=== PATIENT | male | born 1945 | race Hispanic/Latino ===

== ENCOUNTER 2018-05-25 15:58 | Emergency (ER) | payer MEDICARE, OTHER ==
[2018-05-25 16:08] VITALS: O2SAT 96
[2018-05-25 16:32] LABS: BASO # 0.1 K/uL (0.0-0.2); EOS # 0.3 K/uL (0.0-0.7); EOS % 3.3 % (0.0-4.0); HEMOGLOBIN 15.2 g/dL (12.0-18.0); LYMPH # 3.1 K/uL (1.0-4.3); LYMPH % 40.4 % (20.0-40.0); MEAN CELL VOLUME 91.9 fL (80.0-94.0); MEAN CORPUSCULAR HEMOGLOBIN 30.6 pg (27.0-31.0); MEAN CORPUSCULAR HGB CONC 33.3 g/dL (33.0-37.0); MEAN PLATELET VOLUME 6.8 fL (7.2-11.7); MONO # 0.5 K/uL (0.0-0.8); MONO % 6.1 % (0.0-10.0); NEUT # 3.8 K/uL (1.8-7.0); NEUT % 49.2 % (50.0-75.0); RBC 4.96 Mil/uL (4.40-5.90); WHITE BLOOD COUNT 7.7 K/uL (4.8-10.8)
[2018-05-25 16:40] LABS: PROTHROMBIN TIME 10.9 SECONDS (9.7-12.2)
[2018-05-25 16:42] LABS: ALB/GLOB RATIO 1.2 (1.0-2.1); ALBUMIN 4.3 g/dL (3.5-5.0); ALT/SGPT 19 U/L (21-72); AST/SGOT 21 U/L (17-59); BLOOD UREA NITROGEN 17 mg/dL (9-20); CALCIUM 8.8 mg/dl (8.6-10.4); GFR NON-AFRICAN AMERICAN > 60
[2018-05-25 16:53] LABS: CK-MB 1.36 ng/mL (0.0-3.38)
--- NOTE | 2018-05-25 17:16 | RAD ---
HISTORY: chest pain COMPARISON: No prior. TECHNIQUE: Chest, one view. FINDINGS: LUNGS: Prominent interstitial markings may be chronic. Increased lucencies especially within the bilateral upper lung frazier compatible with underlying emphysema. No focal consolidation. Please note that chest x-ray has limited sensitivity for the detection of pulmonary masses. PLEURA: No significant pleural effusion identified. No definite pneumothorax . CARDIOVASCULAR: Heart size appears within normal limits. Ectatic aorta. OSSEOUS STRUCTURES: Degenerative changes of the spine. VISUALIZED UPPER ABDOMEN: Unremarkable. OTHER FINDINGS: None. IMPRESSION: Prominent interstitial markings may be chronic. Emphysematous changes. No focal consolidation.
--- NOTE | 2018-05-25 17:35 | C.PDOC ---
History Of Present Illness 73 year old male presents to the ED complaining of chest pain on exertion that began today. Describes pain as tightness. Denies any shortness of breath or any other symptoms. Time Seen by Provider: 05/25/18 16:44 Chief Complaint (Nursing): Chest Pain History Per: Patient History/Exam Limitations: no limitations Onset/Duration Of Symptoms: Days Current Symptoms Are (Timing): Still Present Quality: Tightness Associated Symptoms: denies: Nausea, Dyspnea, Diaphoresis Exacerbating Factors: Exertion Past Medical History Reviewed: Historical Data, Nursing Documentation, Vital Signs Vital Signs: Last Vital Signs Temp 97.6 F 05/25/18 16:02 Pulse 76 05/25/18 16:02 Resp 20 05/25/18 16:02 BP 144/84 05/25/18 16:02 Pulse Ox 96 05/25/18 16:02 - Medical History PMH: No Chronic Diseases Other Surgeries: herniorrhaphy Family History: States: No Known Family Hx - Social History Hx Alcohol Use: Yes Hx Substance Use: No - Immunization History Hx Tetanus Toxoid Vaccination: No Hx Influenza Vaccination: No Hx Pneumococcal Vaccination: No Review Of Systems Except As Marked, All Systems Reviewed And Found Negative. Cardiovascular: Positive for: Chest Pain Physical Exam - Physical Exam Appears: Non-toxic, No Acute Distress Skin: Warm, Dry, No Rash Head: Atraumatic, Normacephalic Eye(s): bilateral: Normal Inspection, PERRL, EOMI Neck: Supple Chest: Symmetrical, Tenderness Cardiovascular: Rhythm Regular Respiratory: Normal Breath Sounds, No Rales, No Rhonchi, No Wheezing Gastrointestinal/Abdominal: Soft, No Tenderness Extremity: Bilateral: Atraumatic, Normal Color And Temperature, Normal ROM Neurological/Psych: Oriented x3, Normal Speech Gait: Steady ED Course And Treatment - Laboratory Results Result Diagrams: 05/25/18 16:26 05/25/18 16:26 ECG: Interpreted By Me, Viewed By Me ECG Rhythm: Sinus Rhythm Interpretation Of ECG: Normal intervals, normal axis. No ST/T wave abnormalities Rate From EC O2 Sat by Pulse Oximetry: 96 (RA) Pulse Ox Interpretation: Normal - Other Rad CXR X-Ray: Viewed By Me, Read By Radiologist Interpretation: Accession No. : [id number]. Patient Name / ID : [id number] / [id number]. Exam Date : 05/25/2018 16:59:09 ( Approved ). Study Comment : Sex / Age : M / 73Y. Creator : Grecia Carballo MD. Dictator : Grecia Carballo MD. Problem Manager : Email Developer : Grecia Carballo MD. Approver2 : Report Date : 05/25/2018 17:12:51. My Comment : . HISTORY: chest pain. COMPARISON: No prior. TECHNIQUE: Chest, one view. FINDINGS: LUNGS: Prominent interstitial markings may be chronic. Increased lucencies especially within the bilateral upper lung frazier compatible with underlying emphysema. No focal consolidation. Please note that chest x-ray has limited sensitivity for the detection of pulmonary masses. PLEURA: No significant pleural effusion identified. No definite pneumothorax . CARDIOVASCULAR: Heart size appears within normal limits. Ectatic aorta. OSSEOUS STRUCTURES: Degenerative changes of the spine. VISUALIZED UPPER ABDOMEN: Unremarkable. OTHER FINDINGS: None. IMPRESSION: Prominent interstitial markings may be chronic. Emphysematous changes. No focal consolidation. Medical Decision Making Medical Decision Making: Assessment: Chest pain The patient declines to have further medical evaluation and treatment and wishes to leave the Emergency Department. This action is against my medical advice to the patient, and with informed refusal. The patient was told that evaluation and treatment are necessary and a full explanation of the rationale was given. The risks of leaving were explained to the patient and include, but are not limited to, worsening of known or currently unknown conditions, permanent disability and from undiagnosed or untreated conditions The patient has the capacity to make this informed decision and understands the clinical situation and my explanation of the risks of leaving. The patient voluntarily accepts these risks, and a signed AMA form documenting our conversation was obtained. The patient was given the opportunity to ask questions and reconsider. The patient was encouraged to return to the Emergency Department at any time for further care. Disposition - Disposition Referrals: Cristopher Florentino MD [Staff Provider] - Disposition: AGAINST MEDICAL ADVICE Disposition Time: 18:00 Condition: STABLE Additional Instructions: you are signing out against medical advice and assuming responsibility of your care you do not hold us responsible for irreversible outcome including you are welcome to return to ER at any time you need to follow up with cardiology immediately you state full understanding Instructions: Chest Pain Forms: [employer] ([place]) - Clinical Impression Clinical Impression: Chest pain - Scribe Statement The provider has reviewed the documentation as recorded by the Scribe Agatha Jarvis All medical record entries made by the Elmoibe were at my direction and personally dictated by me. I have reviewed the chart and agree that the record accurately reflects my personal performance of the history, physical exam, medical decision making, and the department course for this patient. I have also personally directed, reviewed, and agree with the discharge instructions and disposition.
[2018-05-25 18:01] VITALS: BP 137/74; PULSE 66; RESP 15; TEMP 98
--- NOTE | 2018-05-26 22:33 | CARD ---
APPROVED REPORT Date of service: 05/25/2018 EKG Measurement Heart [id number] <Conclusion> Normal sinus rhythm Normal ECG
== END 2018-05-25 18:00 | disposition left against medical advice (07) ==
LOC: C.ER 15:58
DX: R07.9 Chest pain, unspecified (principal)

== ENCOUNTER 2018-07-01 07:18 | Outpatient (CLI) | payer MEDICARE, OTHER | END 2018-07-01 07:19 | disposition home or self-care (01) | LOC: C.CARD 07:18 | DX: R07.89 Other chest pain (principal); E78.2 Mixed hyperlipidemia ==